=== PATIENT | female | born 1960 | race Asian ===

== ENCOUNTER 2018-05-20 13:57 | Outpatient (CLI) | payer OTHER | END 2018-05-20 13:58 | disposition home or self-care (01) | LOC: DI 13:57 | PROVIDERS: ATTEND Registered Nurse Diabetes Educator | DX: R01.1 Cardiac murmur, unspecified (principal); E78.5 Hyperlipidemia, unspecified | CPT/HCPCS: 93306 ==

== ENCOUNTER 2022-09-18 17:00 | Outpatient (CLI) | payer OTHER ==
--- NOTE | 2022-09-19 10:21 | MRI Report ---
PROCEDURE: SHOULDER WO - RT INDICATIONS: SHOULDER PAIN TECHNIQUE: Noncontrast oblique coronal T2 fast spin echo with fat saturation, oblique sagittal T1 spin echo and T2 fast spin echo with fat saturation, axial T1 spin echo and T2 fast spin echo with fat saturation t hrough the shoulder. COMPARISON: None. FINDINGS: Image quality: Excellent. Rotator cuff: Low to moderate grade articular and bursal surface partial-thickness tear involving dis reina supraspinatus at its insertion on humeral head is seen extending to musculotendinous junction. Lo w-grade articular surface partial-thickness tear involving distal infraspinatus at its insertion on h umeral head is also noted. There is low-grade partial-thickness tear involving superior fibers of dis reina subscapularis. No full-thickness rotator cuff tendon rupture. Mild supraspinatus muscle atrophy i s seen on sagittal images. Bones and bursae: No bone marrow contusions or fractures. Mild to moderate acromioclavicular joint o steoarthritic changes are seen with joint space narrowing and downward osteophyte formation depressin g on musculotendinous junction of supraspinatus. Mild to moderate glenohumeral joint osteophytic new ges also seen with joint space narrowing and subchondral sclerosis. There is small amount of subacrom ial subdeltoid bursal fluid. Moderate amount of subcoracoid bursal fluid is seen. No gross loose bodi es. Capsule and soft tissues: There is signal abnormality and contour irregularity involving anterior inf erior labrum at 5 to 6:00 position concerning for anterior inferior labral tear. The long head of the biceps tendon appears thickened with intrasubstance T2 hyperintense signal. The rotator interval ap pears normal, without fibrosis. The coracohumeral ligament is normal in thickness. IMPRESSION: 1. Low to moderate grade articular and bursal surface partial-thickness tear involving distal suprasp inatus extending to musculotendinous junction. Low-grade articular surface partial-thickness tear inv olving distal infraspinatus. Low-grade partial-thickness tear also seen involving superior fibers of distal subscapularis. No full-thickness rotator cuff tendon rupture. Mild supraspinatus muscle atroph y. 2. 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 No fracture or dis location. Small subacromial subdeltoid bursal fluid and moderate amount of subcoracoid bursal fluid. 3. Finding is suggestive of subtle anterior inferior labral tear at 5 to 6:00 position. 4. Tendinosis and moderate grade intrasubstance partial thickness tear involving proximal intra-artic ular portion of long head of biceps. Reviewed by: Fritz Edmond MD on 09/19/2022 10:20 AM PST Approved by: Fritz Edmond MD on 09/19/2022 10:20 AM PST Station ID: [id number]
== END 2022-09-18 17:01 | disposition home or self-care (01) ==
LOC: DI 17:00
PROVIDERS: ATTEND Physician Assistant
DX: M75.111 Incomplete rotator cuff tear or rupture of right shoulder, not specified as traumatic (principal); M19.011 Primary osteoarthritis, right shoulder; M62.511 Muscle wasting and atrophy, not elsewhere classified, right shoulder; S46.111A Strain of muscle, fascia and tendon of long head of biceps, right arm, initial encounter

== ENCOUNTER 2024-01-08 08:00 | Outpatient (CLI) | payer OTHER ==
--- NOTE | 2024-01-08 16:37 | XRAY Report ---
PROCEDURE: Foot 3 View RT INDICATIONS: RIGHT FOOT PAIN TECHNIQUE: 3 views of the foot were acquired. COMPARISON: None. FINDINGS: Bones: Minimally displaced fracture of the base of the fifth metatarsal is shown (Green fracture). D orsal and plantar calcaneal spur is also seen. Soft tissues: Soft tissue swelling adjacent to the Green fracture IMPRESSION: Minimally displaced fracture of the base of the fifth metatarsal. Reviewed by: Morris Bernardo MD on 01/08/2024 4:36 PM PDT Approved by: Morris Bernardo MD on 01/08/2024 4:36 PM PDT Station ID: [id number]
== END 2024-01-08 23:59 | disposition home or self-care (01) ==
LOC: DI.WOS 08:00
PROVIDERS: ATTEND Orthopaedic Surgery
DX: S92.351A Displaced fracture of fifth metatarsal bone, right foot, initial encounter for closed fracture (principal)

== ENCOUNTER 2024-02-21 10:37 | Outpatient (CLI) | payer OTHER ==
--- NOTE | 2024-02-22 18:40 | XRAY Report ---
PROCEDURE: Foot 3+V RT INDICATIONS: FOOT PAIN TECHNIQUE: 3 views of the foot were acquired. COMPARISON: Right foot radiograph on January 08, 2024. FINDINGS: Bones: Slight interval callus formation of minimally displaced fracture at the base of the fifth meta tarsal with intra-articular extension into the fifth metatarsal -cuboid interval. Fracture plane rem ains conspicuous. No suspicious bony lesions. Soft tissues: No tibiotalar joint effusion. Achilles tendon appears normal. IMPRESSION: Slight interval osseous healing of minimally displaced fracture at the base of the fifth metatarsal w ith intra-articular extension. Fracture plane remains conspicuous. Reviewed by: Norma Kelley MD on 02/22/2024 6:39 PM PDT Approved by: Norma Kelley MD on 02/22/2024 6:39 PM PDT Station ID: [id number]
== END 2024-02-21 10:38 | disposition home or self-care (01) ==
LOC: DI 10:37
PROVIDERS: ATTEND Orthopaedic Surgery
DX: S92.351D Displaced fracture of fifth metatarsal bone, right foot, subsequent encounter for fracture with routine healing (principal)

== ENCOUNTER 2024-03-18 12:36 | Outpatient (CLI) | payer OTHER ==
[~2024-03-18 12:36] MED LIST: GADOTERATE MEGLUMINE 7.5 MMOL/15 ML VIAL ONE
[2024-03-18] MEDS: GADOTERATE MEGLUMINE 7.5 MMOL/15 ML VIAL IVP ONE (13:39)
--- NOTE | 2024-03-18 15:28 | MRI Report ---
PROCEDURE: Abdomen W/WO INDICATIONS: HEPATOMEGALY CONTRAST: CLARISCAN 10.8 ML TECHNIQUE: Coronal ultra fast SE, axial 2D spoiled GE in- and [id number]; axial breath-hold T2 fast SE. Dynam ic axial ultra fast GE during the administration of contrast; post-contrast coronal ultra fast GE or 2D spoiled GE with fat saturation from the hepatic dome to the iliac crests. Optional diffusion weig hted imaging and ADC may be performed. COMPARISON: None. FINDINGS: Image quality: Excellent. Lung bases and heart: Unremarkable. Liver: Right lower liver is prominent. Benign hemangioma at the dome of the liver measuring 2.3 cm (1 12/21). Additional T2 hyperintense focus is likely additional hemangioma or cyst. Liver is at the uppe r limits of normal in size. Gallbladder and biliary tree: No radiopaque stones or wall thickening. No biliary dilation. Spleen: No splenomegaly. Pancreas: No pancreatic ductal dilation. No mass or cystic lesion. Adrenals: No adrenal nodule. Kidneys and ureters: No hydronephrosis. No renal cystic lesion which requires follow up. No solid mas s. Bowel and peritoneum: No bowel distension. No pathologic free fluid. Lymph nodes: No central or retroperitoneal adenopathy. Vessels: No infrarenal aortic aneurysm. Bones: No aggressive osseous abnormality. Other: No significant ventral hernia. IMPRESSION: 1. Liver is at the upper limits of normal in size. Benign hemangioma at the dome of the liver measuri ng 2.3 cm. 2. No biliary or pancreatic ductal dilatation. No free fluid. Reviewed by: Nestor Rome MD on 03/18/2024 3:27 PM PDT Approved by: Nestor Rome MD on 03/18/2024 3:27 PM PDT Station ID: [id number]
== END 2024-03-18 12:37 | disposition home or self-care (01) ==
LOC: DI 12:36
PROVIDERS: ATTEND Student in an Organized Health Care Education/Training Program
DX: R16.0 Hepatomegaly, not elsewhere classified (principal); R93.2 Abnormal findings on diagnostic imaging of liver and biliary tract

== ENCOUNTER 2024-04-25 11:04 | Outpatient (CLI) | payer OTHER ==
--- NOTE | 2024-04-25 21:26 | Ultrasound Report ---
PROCEDURE: Soft Tissue Head or Neck INDICATIONS: DISORDER OF THYROID TECHNIQUE: Real-time scanning was performed of the thyroid gland, with image documentation. COMPARISON: None FINDINGS: Right: Thyroid lobe measures 4.7 x 2.4 x 2.1 cm. Left: Thyroid lobe measures 4.7 x 1.5 x 1.7 cm Isthmus: 0.3 cm thick. Echotexture: Heterogeneous. Nodule number: One Location: Midpole right thyroid lobe Size: 1.8 x 2.3 x 1.9 and internal solid component measures 1.6 x 0.9 x 1.3 cm Composition: Mixed cystic and solid (1 point). Echogenicity: Hypoechoic (2 points). Shape: wider than tall (0 points). Margins: Smooth (0 points). Echogenic foci: None (0 points). Total points: 3 ACR TI-RADS category: TI-RADS 3: Mildly suspicious. Nodule number: Two Location: Upper pole left thyroid lobe Size: 1.2 x 1.1 x 0.8 cm. Composition: Solid (2 points). Echogenicity: Hypoechoic (2 points). Shape: wider than tall (0 points). Margins: Smooth (0 points). Echogenic foci: None (0 points). Total points: 4 ACR TI-RADS category: TI-RADS 4: Moderately suspicious. Nodule number: Three Location: Midpole left thyroid lobe Size: 2.0 x 2.3 x 1.4 cm with solid component measures 1.2 x 1.5 x 1.1 cm. Composition: Mixed cystic and solid (1 point). Echogenicity: Hypoechoic (2 points). Shape: wider than tall (0 points). Margins: Smooth (0 points). Echogenic foci: None (0 points). Total points: 3 ACR TI-RADS category: TI-RADS 3: Mildly suspicious. IMPRESSION: Heterogeneous thyroid gland with bilateral mixed density thyroid nodules as described ab ove, suggest ultrasound follow-up. ACR TI-RADS definitions and recommendations: TI-RADS 1 (benign): 0 points. FNA not needed. TI-RADS 2 (not suspicious): 2 points. FNA not needed. TI-RADS 3 (mildly suspicious): 3 points. "FNA if 2.5 cm or larger, follow up if 1.5 cm or larger (at 1, 3, and 5 years). TI-RADS 4 (moderately suspicious): 4-6 points. "FNA if 1.5 cm or larger, follow up if 1 cm or larger (at 1, 2, 3, and 5 years). TI-RADS 5 (highly suspicious): 7 points or more. "FNA if 1 cm or larger, follow up if 0.5 cm or larger (every year for 5 years). Reviewed by: Fritz Em MD on 04/25/2024 9:25 PM PDT Approved by: Fritz Em MD on 04/25/2024 9:25 PM PDT Station ID: [id number]
== END 2024-04-25 11:05 | disposition home or self-care (01) ==
LOC: DI 11:04
PROVIDERS: ATTEND Nurse Practitioner Family
DX: E04.2 Nontoxic multinodular goiter (principal)

== ENCOUNTER 2024-06-29 07:27 | Day surgery (SDC) | payer OTHER ==
[2024-06-29] MEDS ORDERED: LIDOCAINE 1%-EPI 1:100000 20 ML MDV ONE (07:52)
[2024-06-29] MEDS ORDERED: LIDOCAINE-MPF 1% 5 ML VIAL ONE (07:52)
[2024-06-29] MEDS: LACTATED RINGERS 1,000 ML IV ONE ×2 (07:59→11:13)
[2024-06-29] MEDS ORDERED: ceFAZolin 2 GM VIAL ONE (08:28)
[2024-06-29] MEDS ORDERED: BUPIVACAINE 0.5% PF 10 ML VIAL ONE (08:30)
[2024-06-29] MEDS ORDERED: PROPOFOL 200 MG/20 ML VIAL IVP ONE (09:14)
[2024-06-29] MEDS ORDERED: MIDAZOLAM 2 MG/2 ML VIAL ONE (09:14)
[2024-06-29] MEDS ORDERED: fentaNYL 100 MCG/2 ML VIAL ONE (09:14)
[2024-06-29] MEDS ORDERED: LIDOCAINE-PF 2% 10 ML AMP SUBQ ONE (09:15)
[2024-06-29] MEDS ORDERED: SEVOFLURANE 250 ML LIQUID INH ONE (09:19)
--- NOTE | 2024-06-29 09:34 | ANESTHESIA ---
Pre-Anesthesia VS, & Labs - Diagnosis left ductal hyperplagia - Procedure left breast excisional biolsy with needle localization Vital Signs: Temp Pulse Resp BP Pulse Ox O2 Flow Rate 36.4 C L 64 19 147/88 H 100 06/29/24 08:00 06/29/24 08:00 06/29/24 08:00 06/29/24 08:00 06/29/24 08:00 Height: 5 ft Weight (kg): 54.4 kg Body Mass Index: 23.4 BMI Classification: Normal - NPO >8 hours - Is Patient ?: No Home Medications and Allergies Allergies/Adverse Reactions: Allergies Allergy/AdvReac Type Severity Reaction Status Date / Time No Known Drug Allergies Allergy Verified 06/29/24 08:07 Anes History & Medical History - Anesthetic History Anesthesia Complications: reports: No previous complications - Medical History Cardiovascular: reports: None Pulmonary: reports: None Gastrointestinal: reports: None Urinary: reports: None Musculoskeletal: reports: None Endocrine/Autoimmune: reports: None Skin: reports: None - Surgical History General: reports: Colonoscopy Gynecologic: reports: Tubal ligation Exam General: Alert, Oriented x3 Dental: Partials Upper Mouth Opening: Greater than 4 Fingerbreadths Neck Mobility: Normal Mallampati classification: II Thyromental Distance: greater than 6 cm Respiratory: Lungs clear Cardiovascular: Regular rate, Normal S1, Normal S2 Plan Anesthesia Type: General Consent for Procedure(s) Verified and Reviewed: Yes Code Status: Attempt Resuscitation ASA classification: 2-Mild systemic disease Is this case an emergency?: No
[2024-06-29] MEDS: LIDOCAINE-MPF 1% 5 ML VIAL TD ONE (09:45)
[2024-06-29] MEDS ORDERED: ceFAZolin 1 GM VIAL ONE (09:54)
[2024-06-29] MEDS ORDERED: DEXAMETHASONE 4 MG/ML VIAL ONE (10:01)
[2024-06-29] MEDS ORDERED: ONDANSETRON 4 MG/2 ML VIAL ONE (10:01)
[2024-06-29] MEDS ORDERED: ROCURONIUM 50 MG/5 ML VIAL ONE (10:01)
[2024-06-29] MEDS ORDERED: ePHEDrine 50 MG/ML VIAL IVP ONE (10:06)
[2024-06-29] MEDS ORDERED: ACETAMINOPHEN 1,000 MG/100 ML 1,000 MG/100 ML BAG IV ONE (10:06)
[2024-06-29] MEDS ORDERED: MORPHINE 2 MG/ML CARPUJECT IVP PRN (10:37)
[2024-06-29] MEDS ORDERED: NALOXONE 0.4 MG/ML VIAL IVP PRN (10:37)
[2024-06-29] MEDS ORDERED: METOCLOPRAMIDE 10 MG/2 ML VIAL IVP PRN (10:37)
[2024-06-29] MEDS ORDERED: ATROPINE ABBOJECT 1 MG/10 ML SYRINGE IVP PRN (10:37)
[2024-06-29] MEDS ORDERED: ePHEDrine 50 MG/ML VIAL IVP PRN (10:37)
[2024-06-29] MEDS ORDERED: ONDANSETRON 4 MG/2 ML VIAL IVP PRN (10:37)
[2024-06-29] MEDS ORDERED: HYDROmorphone 0.5 MG/0.5 ML SYRINGE IVP PRN (10:37)
[2024-06-29] MEDS ORDERED: fentaNYL 100 MCG/2 ML VIAL IVP PRN (10:37)
[2024-06-29] MEDS ORDERED: SUGAMMADEX 200 MG/2 ML VIAL IVP ONE (10:53)
[2024-06-29] MEDS ORDERED: LACTATED RINGERS 1,000 ML IV SCH (11:00)
--- NOTE | 2024-06-29 11:10 | OPERATIVE REPORT ---
Operative Report - General Procedure Date: 06/29/24 Planned Procedure: LEFT excisional breast biopsy with preoperative needle localization Pre-Op Diagnosis: LEFT breast lesion (atypical ductal hyperplasia) Procedure Performed: LEFT excisional breast biopsy with preoperative needle localization Post Op Diagnosis: LEFT breast lesion (atypical ductal hyperplasia) - Procedure Note Primary Surgeon: Luis Alberto Chang MD Anesthesia Provider: Fanny Zavaleta CRNA Anesthesia Technique: General ET tube, Local (27 cc of half percent Marcaine (limited by weight)) IV Fluids (mL): 700 Estimated Blood Loss (mL): 10 Drain/Tube Type: Other (None) Findings: Radiology called and confirmed that the needle and clip were in the specimen that was sent over to radiology. Complications: None - Other Other Information/Narrative: After verbal and written informed consent was obtained detailing the operation, the alternatives the operation including no operation, risks of infection, bleeding requiring transfusion with its risks, nerve injury, and and after the patient had a needle localization procedure in radiology, I met with the patient confirming the surgery and the site of surgery (needle in place), the patient was brought to the operative suite and placed supine on the operating table. During that time I personally revied the localization radiographs. Great care was taken to avoid pressure points to prevent pressure necrosis or nerve injury. Monitoring devices were applied along with TEDs and pneumatic compression stockings (to prevent DVT). The patient received preoperative antibiotics for surgical prophylaxis. Fanny Zavaleta CRNA sedated and anesthetized the patient for the entire procedure. The patient was prepped and draped in the usual sterile manner taking great care not to dislodge the wire or needle. A "time in" then confirmed that the patient was identified with 3 identifiers (name, date, and medical record number), the history and physical was updated and in the chart, the signed consent confirming the procedure was in the chart, the patient was in the correct position, the aforementioned prophylactic measures were in place or given, we had the correct personnel and equipment to complete the procedure and that anesthesia and the surgical team were given an opportunity to express any concerns. With the agreement of everyone in the room we proceeded with the operation. A transverse incision was made overlying the needle tip and dissection was carried out down to the needle tip using a combination of sharp dissection with Metzenbaum scissors and Bovie electrocautery. Meticulous hemostasis was achieved using Bovie electrocautery. Great care was taken to ensure that a 1 cm margin was obtained around the needle tip. Once the dissection proceeded to its deepest point, I greasped the tisse indicated with the needle tip and wire with a Shashank traction forceps and carefully removed the needle leaving the wire in place. The tissue was then excised using application of Metzenbaum scissors. At this point a small feeding blood vessel was encountered and hemostasis was obtained using Bovie electrocautery but not before some small amount of blood loss occurred. The lesion was then marked with a short silk stitch superiorly, a long silk stitch laterally, and a double stitch deep. The specimen was sent off the operative field and permission was given to send it to pathology. The cavity was examined and meticulous hemostasis was again noted. Once the phone call was received from radiology confirming that the wire and clip were in the operative specimen, the subcutaneous tissues were approximated using simple 3-0 Vicryl suture. The skin incision was approximated with 4-0 Monocryl in a subcuticular fashion. The cavity and overlying skin was then injected using all of the half percent Marcaine. The skin was cleaned of its prep and Dermabond was applied. At this point a timeout was performed that confirmed that all counts were correct x2, the procedure that was performed, the blood loss, the IV fluids administered, the patient's condition, and any concerns of the operating team had. Having tolerated the procedure well, the patient was taken recovery room in good and stable condition. The plan is for outpatient discharge when the patient is adequately recovered. CPT 44013 Today's documentation has been created with the assistance of voice recognition software. Therefore, it may contain anomalous punctuation, anomalous independent mis-recognitions, word substitutions, insertions or omissions. Occasional wrong-word or phonetically similar substitutions may also occur all due to the inherent limitations of voice recognition software. I have attempted to correct the above but I recommend that the chart be read carefully to recognize, using context, where the substitutions, insertions or omissions may have occurred.
[2024-06-29] MEDS: BUPIVACAINE 0.5% PF 30 ML VIAL INFIL ONE (11:17)
[2024-06-29 11:42] VITALS: O2SAT 100
[2024-06-29] MEDS: HYDROcod/ACETAM 5/325 MG TABLET PO ONE (12:28)
[2024-06-29 12:30] VITALS: BP 129/83
--- NOTE | 2024-06-29 13:46 | ANESTHESIA POST OP EVALUATION ---
Anesthesia Post Eval - Post Anesthesia Eval Vitals: Last Vital Signs Temp 36 C L 06/29/24 11:40 Pulse 66 06/29/24 12:02 Resp 14 06/29/24 12:02 BP 129/83 H 06/29/24 12:02 Pulse Ox 100 06/29/24 12:02 O2 Flow Rate CV Function Including HR & BP: Stable Pain Control: Satisfactory Nausea & Vomiting: Negative Mental Status: Baseline Respiratory Status: Airway Patent Hydration Status: Satisfactory Anesthesia Complications: None
--- NOTE | 2024-06-30 15:30 | Mammography Report ---
SPECIMEN LEFT BREAST: 06/29/2024 CLINICAL: Left breast specimen. Correlation is made to exams dated: 06/29/2024 localization - [facility], 05/03/2024 stereotactic biopsy - [facility], 04/21/2024 mammogram, 04/02/2024 mammogram, and 03/20/2023 mammogram - [facility]. A surgical specimen was imaged for the area of calcifications located in the left breast at 8 o'cloc k posterior depth. This was described on the previous mammography and biopsy reports. IMPRESSION: SPECIMEN The imaged specimen includes a biopsy clip and the distal portion of the biopsy wire. This exam was interpreted at Station ID: [id number]. Mark pantoja/ruddy:06/29/2024 16:19:45 BI-RADS CATEGORY: () - Unspecified - other recall n/a LATERALITY: (B)
--- NOTE | 2024-06-30 15:30 | Mammography Report ---
DIGITAL MAMMOGRAPHY GUIDED WIRE LOCALIZATION LEFT BREAST WITH POST DIGITAL MAMMOGRAPHIC IMAGIN06/29 CLINICAL: Left breast wire localization. Correlation is made to exams dated: 05/03/2024 stereotactic biopsy - [facility], mammogram, 04/02/2024 mammogram, 03/20/2023 mammogram, and 12/14/2021 mammogram - [facility]. A wire localization using digital mammography guidance was performed for the marker clip located in t he left breast at 8 o'clock posterior depth. The skin was prepped in the usual manner. Local anesth etic was administered to the access site. The localization was approached from the medial aspect. A wire was inserted into the targeted area through an introducer device under digital mammography guid ance. A sterile dressing was applied to the access site. Post placement digital mammographic imagin g demonstrates the tip passes through the targeted area. IMPRESSION: WIRE LOCALIZATION Wire localization for the marker clip in the left breast at 8 o'clock posterior depth was successful with no apparent post procedure complications. This exam was interpreted at Station ID: [id number]. Mark pantoja/jesusrad:06/29/2024 16:16:50 BI-RADS CATEGORY: () - Unspecified - other recall n/a LATERALITY: (B)
== END 2024-06-29 07:28 | disposition home or self-care (01) ==
LOC: SDS 07:27
PROVIDERS: ATTEND Surgery
PROC: 0HBU0ZX Excision of Left Breast, Open Approach, Diagnostic (ICD-10-PCS; principal; 2024-06-29 09:30)
DX: N60.92 Unspecified benign mammary dysplasia of left breast (principal)
CPT/HCPCS: 19125; 19281; 76098; A9270; J0131; J3490; J7120